=== PATIENT | female | born 1960 | race American Indian/Alaskan Native ===

== ENCOUNTER 2022-11-09 06:16 | Inpatient (IN) | payer MEDICARE, OTHER ==
[2022-11-03 11:29] LABS: BASOPHILS % (AUTO) 0.6 % (0-1); EOSINOPHILS # (AUTO) 0.1 X10'3 (0-0.9); EOSINOPHILS % (AUTO) 1.3 % (0-6); LYMPHOCYTES # (AUTO) 3.1 X10'3 (1.1-4.8); LYMPHOCYTES % (AUTO) 41.8 % (21-51); MEAN CORPUSCULAR HEMOGLOBIN 28.9 PG (27.0-31.0); MEAN CORPUSCULAR HGB CONC 33.3 g/dL (33.0-36.5); MEAN CORPUSCULAR VOLUME 86.7 FL (78-98); MEAN PLATELET VOLUME 8.8 FL (7.4-10.4); MONOCYTES # (AUTO) 0.6 X10'3 (0-0.9); MONOCYTES % (AUTO) 7.8 % (2-12); NEUTROPHILS # (AUTO) 3.6 X10'3 (1.8-7.7); NEUTROPHILS % (AUTO) 48.5 % (42-75); PRE OP HEMATOCRIT 37.4 % (35.0-45.0); PRE OP HEMOGLOBIN 12.4 g/dL (12.0-16.0); PRE OP PLATELET COUNT 233 X10'3 (140-440); RED BLOOD COUNT 4.31 X10'6 (4.20-5.60); RED CELL DISTRIBUTION WIDTH 14.3 % (11.5-14.5)
[2022-11-03 11:44] LABS: ALBUMIN 3.6 G/DL (3.4-5.0); ALBUMIN/GLOBULIN RATIO 1.1 (1.1-1.5); ALKALINE PHOSPHATASE 55 IU/L (46-116); BLOOD UREA NITROGEN 25 MG/DL (7-18); BUN/CREATININE RATIO 28.7 (10.0-20.0); CALCIUM 9.2 MG/DL (8.5-10.1); CHLORIDE 105 MMOL/L (99-107); CREATININE 0.87 MG/DL (0.40-0.90); PRE OP ALT 25 U/L (30-65); PRE OP ANION GAP 8 (8-16); PRE OP AST 16 U/L (10-37); PRE OP BILIRUB, TOTAL 0.3 MG/DL (0.0-1.0); PRE OP GLUCOSE 87 MG/DL (70-104); PRE OP POTASSIUM 3.8 MMOL/L (3.4-5.1); PRE OP SODIUM 141 MMOL/L (135-145); TOTAL CARBON DIOXIDE 28.4 MMOL/L (24-32); TOTAL PROTEIN 6.9 G/DL (6.4-8.2); eGFR 66 ML/MIN
[2022-11-09] VITALS (29 sets, daily range): BP systolic 114–184; BP diastolic 50–99
[~2022-11-09] VITALS: Ht 157.5 cm; Wt 116.5 kg
[~2022-11-09 06:16] MED LIST: CYCL-1 PO; HYDR25TA4 PO; LOSA100T58 PO; MELO-102 PO; PREVCR VG; TRAM50TA2 PO; cefazolin 2gm/D5W 100mL 100 ML IV ONE; famotidine 20mg tablet PO ONE; ringers solution, lacted 1,000 ML IV SCH; tranexamic acid 650mg tablet PO ONE; vancomycin 1,500 MG in NS 300ml IV soln IV ONE
[2022-11-09] MEDS ORDERED: tranexamic acid 650mg tablet PO ONE (06:25)
--- NOTE | 2022-11-09 06:35 | NUR ---
CSM: PULSES PRESENT AND MARKED. PATIENT STATES "IGNORANCE IS BLISS. I DID NOT WATCH THE VIDEO" MUPIROCIN CREAM WAS USED. EDUCATED PATIENT ON THE USE OF THE INCENTIVE SPIROMETER AND ITS IMPORTANCE
[2022-11-09] MEDS ORDERED: tranexamic acid 100mg/ml inj. ONE (06:57)
[2022-11-09] MEDS ORDERED: ketorolac trometh. 30mg/ml inj. ONE (06:57)
[2022-11-09] MEDS ORDERED: ROPIVAcaine 0.5% (5mg/ml) 30ml vial ONE ×2 (06:57→09:36)
[2022-11-09] MEDS ORDERED: fentaNYL/PF 50MCG/1 ML 2ML syringe ONE ×2 (07:43→09:30)
[2022-11-09] MEDS ORDERED: midazolam 1 mg/ML 2ml injection ONE (07:43)
[2022-11-09] MEDS ORDERED: neostigmine methylsulfate 1 MG/ML 10ml vial ONE (08:00)
[2022-11-09] MEDS ORDERED: sevoflurane 250ml liquid IH ONE (08:00)
[2022-11-09] MEDS ORDERED: glycopyrrolate 0.2mg/ml inj ONE (08:00)
[2022-11-09] MEDS ORDERED: ringers solution, lacted 1,000 ML IV SCH (08:35)
[2022-11-09] MEDS ORDERED: meperidine/PF 25mg/ml syringe IV PRN ×3 (08:35)
[2022-11-09] MEDS ORDERED: proCHLORperazine 10 MG/2 ml inj IV PRN (08:35)
[2022-11-09] MEDS ORDERED: morphine 2 MG/ML inj. syringe IV PRN (08:35)
[2022-11-09] MEDS ORDERED: ondansetron/PF 4mg/2ml inj IV PRN ×2 (08:35→10:35)
[2022-11-09] MEDS ORDERED: morphine 4 MG/ML inj SYRINge IV PRN (08:35)
[2022-11-09] MEDS ORDERED: ROPIVAcaine 0.2% (10 MG/5 ML) BOLUS INJECTION INTERSCALE PRN (09:15)
[2022-11-09] MEDS ORDERED: ROPIVAcaine 0.2%/PF PUMP/bolus 545 ML INTERSCALE SCH (09:15)
[2022-11-09] MEDS ORDERED: ROPIVAcaine 0.5% (5mg/ml) 30ml vial IJ ONE (09:27)
[2022-11-09] MEDS ORDERED: ketorolac trometh. 30mg/ml inj. IM ONE (09:29)
[2022-11-09] MEDS ORDERED: LIDOcaine 1%/PF 5ML 10 MG/ML VIAL ONE (09:36)
[2022-11-09] MEDS ORDERED: rocuronium 10mg/ml inj IV ONE (09:36)
[2022-11-09] MEDS ORDERED: acetaminophen 1,000mg/100ml IV 100 ML IV ONE (09:36)
[2022-11-09] MEDS ORDERED: ePHEDrine 50MG/ML INJ. ONE (09:36)
[2022-11-09] MEDS ORDERED: dexamethasone sod phosphate 4mg/ml inj. ONE (09:36)
[2022-11-09] MEDS ORDERED: ondansetron/PF 4mg/2ml inj ONE (09:36)
[2022-11-09] MEDS ORDERED: propofol inj 20 ML IV ONE (09:36)
--- NOTE | 2022-11-09 10:11 | NUR ---
Received from OR via HOSPITAL BED, accompanied by Anesthesiologist DR PATTEN and report given by Anesthesiologist. PT IS GROGGY BUT ANSWERS QUESTIONS APPROPRIATELY AND FOLLOWS COMMANDS. PT PLACED ON BEDSIDE MONITOR, VSS. PT IS IN SR WITH RATE IN 80'S. PT IS RECEIVING 8L 02 TO MASK AND TOLERATING WELL WITH O2 SAT >95%. WILL TITRATE DOWN PT TOLERATES. PT HAS 20G PIV TO RT HAND WITH LR INFUSING ORDERED. PT HAS DRSG TO LEFT SHOULDER THAT IS CDI. SHOULDER WRAP IN PLACE WITH ICEPACK. PT HAS SLING TO LEFT ARM. PT DENIES PAIN AT THIS TIME. AWAITING PHARMACY TO DELIVER ON-Q. WILL START SOON AVAILABLE. WILL CONTINUE TO ASSESS
[2022-11-09] MEDS ORDERED: magnesium hydroxide 30ml (MOM) UD suspension PO PRN (10:35)
[2022-11-09] MEDS ORDERED: bisacodyl 10mg suppository rectal RC PRN (10:35)
[2022-11-09] MEDS ORDERED: diphenhydrAMINE 25mg capsule PO PRN ×2 (10:35)
[2022-11-09] MEDS ORDERED: HYDROcodone/acetaminophen 10/325mg tab PO PRN ×2 (10:35)
[2022-11-09] MEDS ORDERED: naloxone 0.4 mg/ml inj IV PRN (10:35)
[2022-11-09] MEDS ORDERED: cyclobenzaprine 10mg tablet PO PRN (10:35)
[2022-11-09] MEDS ORDERED: oxyCODONE IR 5mg (immed. release) tablet PO PRN ×2 (10:35)
[2022-11-09] MEDS ORDERED: acetaminophen 325mg tablet PO PRN (10:35)
[2022-11-09] MEDS ORDERED: HYDROmorphone 1 mg/ml syringe IV PRN (10:35)
[2022-11-09] MEDS ORDERED: HYDROmorphone inj. 0.5 MG/0.5 ML DISP.SYRIN IV PRN (10:35)
[2022-11-09] MEDS ORDERED: traMADol 50MG tablet PO PRN (10:35)
--- NOTE | 2022-11-09 13:12 | NUR ---
PATIENT HAS MET ALL CRITERIA FOR TRANSFER TO THE ORTHO FLOOR. REPORT CALLED TO ABIGAIL BORREGO. DRESSINGS INTACT. BED LOW, CALL LIGHT PRESENT AND 2 RAILS UP. RN PRESENT TO ACCEPT CARE OF PATIENT AND REPORT HAS BEEN CALLED. ALL QUESTIONS ANSWERED TO ACCEPTING RN.
[2022-11-09] MEDS: acetaminophen 325mg tablet PO SCH ×2 (15:46→20:36)
[2022-11-09] MEDS: potassium cl 20mEq in 1/2 NS 1,000 ML IV SCH ×2 (15:47→23:31)
[2022-11-09] MEDS: ceFAZolin/D5W- 1GM premix 50 ML IV SCH ×2 (16:05→23:30)
--- NOTE | 2022-11-09 18:00 | NUR ---
I have reviewed and agree with interventions, assessments, and documentation by Ernesto Cotto LVN.
--- NOTE | 2022-11-09 18:56 | NUR ---
Problems reprioritized. Patient report given, questions answered & plan of care reviewed with MOY Gamboa.
[2022-11-09] MEDS ORDERED: vancomycin/NS 1 GM ADD-VANTAGE 250 ML IV SCH (20:00)
--- NOTE | 2022-11-09 20:30 | NUR ---
Patient in room ORTHO 4010. I have received report from MOY Perez and had the opportunity to ask questions and assume patient care.
--- NOTE | 2022-11-09 20:40 | NUR ---
dropped senna tablet on [facility], pulled another senna from [facility]. Total given, 17.2 mg
[2022-11-09] MEDS ORDERED: sennosides 8.6mg tablet PO SCH (21:00)
[2022-11-10 02:00] VITALS: BP 145/64
[2022-11-10] MEDS: acetaminophen 325mg tablet PO SCH ×2 (02:24→07:33)
[2022-11-10] MEDS: potassium cl 20mEq in 1/2 NS 1,000 ML IV SCH (03:30)
[2022-11-10 06:00] VITALS: BP 129/72
--- NOTE | 2022-11-10 06:15 | NUR ---
Patient in room ORTHO 4010. I have received report from Milka PIPER and had the opportunity to ask questions and assume patient care.
--- NOTE | 2022-11-10 06:34 | NUR ---
Problems reprioritized. Patient report given, questions answered & plan of care reviewed with VERONIQUE Helms.
--- NOTE | 2022-11-10 06:46 | NUR ---
I have reviewed and agree with all interventions, assessments performed and documented by VERONIQUE PACKER.
[2022-11-10 06:51] LABS: ANION GAP 12 (8-16); BASOPHILS % (AUTO) 0.2 % (0-1); CHLORIDE 104 MMOL/L (99-107); EOSINOPHILS % (AUTO) 0.1 % (0-6); HEMATOCRIT 33.3 % (35.0-45.0); HEMOGLOBIN 10.8 g/dl (12.0-16.0); LYMPHOCYTES # (AUTO) 3.2 X10'3 (1.1-4.8); LYMPHOCYTES % (AUTO) 22.6 % (21-51); MEAN CORPUSCULAR HEMOGLOBIN 28.8 PG (27.0-31.0); MEAN CORPUSCULAR HGB CONC 32.4 g/dL (33.0-36.5); MEAN CORPUSCULAR VOLUME 88.9 FL (78-98); MEAN PLATELET VOLUME 9.2 FL (7.4-10.4); MONOCYTES # (AUTO) 1.7 X10'3 (0-0.9); MONOCYTES % (AUTO) 12.2 % (2-12); NEUTROPHILS % (AUTO) 64.9 % (42-75); PLATELET COUNT 236 X10'3 (140-440); POTASSIUM 3.7 MMOL/L (3.5-5.1); RED BLOOD COUNT 3.74 X10'6 (4.20-5.60); RED CELL DISTRIBUTION WIDTH 14.5 % (11.5-14.5); SODIUM 138 MMOL/L (135-145); TOTAL CARBON DIOXIDE 22.1 MMOL/L (24-32); WHITE BLOOD COUNT 13.9 X10'3 (4.5-11.0)
[2022-11-10] MEDS ORDERED: losartan 50mg tablet PO SCH (08:00)
[2022-11-10] MEDS ORDERED: HYDROchlorothiazide 25mg tablet PO SCH (08:00)
[2022-11-10] MEDS ORDERED: MELOXICAM 7.5 MG TABLET PO SCH (08:00)
[2022-11-10 10:00] VITALS: BP 116/54
--- NOTE | 2022-11-10 11:10 | NUR ---
Joint surgery consult: Pt s/p L shoulder surgery this admit per EMR. Pt seen by ARVIND for written/verbal high protein diet ed w/ RD contact information provided. RD encouraged pt to contact dietitian's office if further nutrition questions/concerns. Pt reports takes steele seal/steele root typically when has a cut or wound requests RD input on this herbal supplement. RD researched this and found it is a mild laxative, hypertensive, vasoconstrictor, and in high doses can lead to trouble breathing, spasms, and central paralysis. ARVIND notified pt RN of findings. Addendum: 11/10/22 at [address] Amended: Links added.
--- NOTE | 2022-11-10 12:00 | NUR ---
I have reviewed and agree with interventions, assessments, and documentation by Rachana Chavez LVN.
--- NOTE | 2022-11-10 12:45 | NUR ---
Patient was discharged home today. IV removed by RN. Patient was helped getting dressed. Patient alert and appropriate. Patient was wheeled downstairs with all belongings. patient was helped into friends private vehicle.
[2022-11-10] MEDS ORDERED: celeCOXIB 100mg capsule PO SCH (20:00)
[2022-11-11] MEDS ORDERED: acetaminophen 325mg tablet PO PRN (10:35)
[2022-11-16] MEDS ORDERED: estrogens, conjug. vaginal cream 45gm tube VG SCH (10:00)
== END 2022-11-10 12:55 | disposition home or self-care (01) | DRG 483 ==
LOC: UNDOADMIN 06:16 → PAS IN 06:16 → ORTHO 4S 13:50
PROVIDERS: ADMIT Orthopaedic Surgery; ATTEND Orthopaedic Surgery
PROC: 0LS40ZZ Reposition Left Upper Arm Tendon, Open Approach (ICD-10-PCS; 2022-11-09)
PROC: 3E0T3BZ Introduction of Anesthetic Agent into Peripheral Nerves and Plexi, Percutaneous Approach (ICD-10-PCS; 2022-11-09)
PROC: 3E0T33Z Introduction of Anti-inflammatory into Peripheral Nerves and Plexi, Percutaneous Approach (ICD-10-PCS; 2022-11-09)
PROC: 5A09357 Assistance with Respiratory Ventilation, Less than 24 Consecutive Hours, Continuous Positive Airway Pressure (ICD-10-PCS; 2022-11-09)
PROC: 0RRK0JZ Replacement of Left Shoulder Joint with Synthetic Substitute, Open Approach (ICD-10-PCS; principal; 2022-11-09 08:00)
PROC: 5A09357 Assistance with Respiratory Ventilation, Less than 24 Consecutive Hours, Continuous Positive Airway Pressure (ICD-10-PCS; 2022-11-10)
DX: M19.012 Primary osteoarthritis, left shoulder (principal); Z68.42 Body mass index [BMI] 45.0-49.9, adult; E66.01 Morbid (severe) obesity due to excess calories; F41.9 Anxiety disorder, unspecified; Z96.611 Presence of right artificial shoulder joint; M79.7 Fibromyalgia; G47.33 Obstructive sleep apnea (adult) (pediatric); M75.22 Bicipital tendinitis, left shoulder; G89.29 Other chronic pain; M65.812 Other synovitis and tenosynovitis, left shoulder; Z79.899 Other long term (current) drug therapy; Z88.2 Allergy status to sulfonamides
CPT/HCPCS: 36415; 80051; 80053; 82948; 85025; 87081; 97110; 97161; 97530; A4565; A4615; A4618; A7000; C1713; C1776; G0378; J0131; J0690; J1100; J1885; J2250; J2405; J2704; J2710; J2795; J3010; J3370; J3480; J3490; J7120

== ENCOUNTER 2025-04-24 19:53 | Emergency (ER) | payer MEDICARE, OTHER ==
[~2025-04-24 19:53] MED LIST changes: -cefazolin 2gm/D5W 100mL 100 ML IV ONE; -famotidine 20mg tablet PO ONE; -ringers solution, lacted 1,000 ML IV SCH; -tranexamic acid 650mg tablet PO ONE; -vancomycin 1,500 MG in NS 300ml IV soln IV ONE
--- NOTE | 2025-04-24 20:01 | ELECTROCARDIOGRAPH REPORT ---
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 Pepe Rollins Measurements Intervals [place] Rate: 102 P: 41 IN: 137 QRS: 61 QRSD: 104 T: 26 QT: 334 QTc: 436 Interpretive Statements Sinus tachycardia Low voltage, precordial leads RSR' in V1 or V2, right VCD or RVH Electronically Signed On 04-24-2025 21:29:[address] Pepe Rollins Please click the below link to view image of tracing.
[2025-04-24 20:24] VITALS: TEMP 98.8
[2025-04-24 20:27] LABS: MEAN PLATELET VOLUME 8.8 FL (7.4-10.4); RED CELL DISTRIBUTION WIDTH 15.1 % (11.5-14.5)
--- NOTE | 2025-04-24 20:29 | RADIOLOGY REPORT ---
CHEST RADIOGRAPH Indication: CP Technique: Single frontal view of the chest was obtained COMPARISON: CHEST,TWO VIEWS on DOS: 03/26/22 FINDINGS: Lines and Tubes: None Lungs: Increased interstital prominence. This may represent pulmonary vascular congestion and/or viral pneumonia. Pleura: No effusion.No pneumothorax. Cardiomediastinal contours: Borderline cardiomegaly. Bones: Unremarkable IMPRESSION: Increased interstital prominence. This may represent pulmonary vascular congestion and/or viral pneumonia.
[2025-04-24 20:43] LABS: CREATININE 0.92 MG/DL (0.40-0.90); PRO BRAIN NATRIURETIC PEPTIDE 130 PG/ML (0-125); TOTAL CARBON DIOXIDE 30.4 MMOL/L (24-32); eGFR 61 ML/MIN
--- NOTE | 2025-04-24 22:00 | Physician Documentation ---
History of Present Illness ~ Chief Complaint: Shortness of Breath Stated Complaint: SOB Time Seen by MD: 22:45 Primary Medical Doctor: DR HAYDEE BROWNLEE HPI 65 year old female patient presents to the ED with complaints of left sided back pain. She states that it began 2.5 days ago and is now radiating to her shoulder. She states that the pain "takes her breath away" with any movement. Patient has history of Lupus but states that "this pain is different". She states that she "feels fine" at rest. Patient denies any other associated symptoms. Patient denies any other alleviating or exacerbating factors at this time. Medication Reconciliation Allergies: Coded Allergies: Sulfa (Sulfonamide Antibiotics) (Unverified Allergy, Unknown, RASH, 04/24/25) RASH Scheduled Estrogens,Conjugated (PREMARIN Vaginal Cream), 1 GM VG Q2W, (Reported) Hydrochlorothiazide (Hydrochlorothiazide), 1 TAB PO DAILY, (Reported) Losartan Potassium (Losartan Potassium), 1 TAB PO DAILY, (Reported) Meloxicam (Meloxicam), 1 TAB PO DAILY, (Reported) Scheduled PRN Cyclobenzaprine* (Cyclobenzaprine*), 1 TAB PO DAILY PRN for pain, (Reported) Hydrocodone Bit/Acetaminophen 5/325 MG (Cascade 5/325 MG), 1-2 TAB PO Q4-6 hours PRN for pain ONDANSETRON ODT 4mg tablet (Ondansetron Odt), 1 TAB PO Q6H PRN PRN for nausea/vomiting Tramadol Hcl (Tramadol Hcl), 1 TAB PO BID PRN for pain, (Reported) Past Medical History Past Medical History: Hypertension, Chronic Pain Past Surgical History: , hysterectomy, other Other Past Surgical History: BACK Other Past Family History: NONE Alcohol Use: None Drug Use: none Lives with: Alone Lives In: Home Review of Systems ROS As stated above in the HPI, otherwise all systems are reviewed and negative. Physical Exam Vital Signs: RN Vital Signs have been reviewed: Yes, Temperature: 98.8, Source: Oral, Heart Rate: 104, Respiratory Rate: 16, BP: 140/71, Pulse Oximetry: 98 Oxygen Flow Rate: 0 Pulse Oximetry Reflects: adequate oxygenation Physical Exam General: Patient is awake, alert, oriented x4 in no acute distress and well appearing.~ Head: Normocephalic and atraumatic. Eyes: Conjunctival normal. EOMI. PERRL. ENT: Mucous membranes moist. Neck: Supple, trachea is midline. Chest: Clear to auscultation bilaterally without rales, rhonchi, or wheezes. T here is no accessory muscle use or retractions. Cardiac: RRR without murmurs, gallops, or rubs. Abd: Soft, nondistended, nontender, with normoactive bowel sounds. No guarding, rebound, or rigidity. Extremities: Normal strength. Normal range of motion. No deformities or edema. Back: Tenderness to palpation to the left paraspinal musculature of the thoracic region. Skin: Warm and dry with no significant rash appreciated. Neuro: Cranial nerves II-XII grossly intact. No focal neuro deficits. Patient ambulating without difficulty. Progress Results/Orders Results/Orders Orders - OMAR DRUMMOND MD Chest,Single View (04/24/25 20:18) Monitor (04/24/25 19:57) Saline Lock (04/24/25 19:57) Oxygen (04/24/25 19:57) Electrocardiogram (04/24/25 19:57) Completed Orders - OMAR DRUMMOND MD Chest,Single View (04/24/25 20:18) Cbc/Diff (04/24/25 19:57) BMP (04/24/25 19:57) PBNP (04/24/25 19:57) Electrocardiogram (04/24/25 19:57) Hs Troponin I W Calculations (04/24/25 19:57) Hs Troponin I W Calculations (04/24/25 22:57) Ketorolac Trometh 15mg/Ml Vial (Toradol (04/24/25 23:05) Acetaminophen 325mg Tablet (Tylenol Tabl (04/24/25 23:05) Orphenadrine Citrate Inj. (Norflex Inj.) (04/24/25 23:05) Ondansetron Disint. Tablet (Zofran Odt T (04/24/25 23:05) Hydrocodone/Apap 5/325mg Tab (Cascade 5/32 (04/24/25 23:05) Medications Received in ER Medications (Trade) Dose Ordered Sig/Malcolm Route PRN Reason Start Time Stop Time Status Last Admin Dose Admin (Toradol injection) 30 mg ONCE ONCE IM 04/24/25 23:05 04/24/25 23:18 DC 04/24/25 23:25 30 MG (Tylenol tablet) 325 mg ONCE ONCE PO 04/24/25 23:05 04/24/25 23:07 DC 04/24/25 23:27 325 MG (Norflex inj.) 30 mg ONCE ONCE IM 04/24/25 23:05 04/24/25 23:18 DC 04/24/25 23:28 30 MG (Zofran ODT tablet) 4 mg ONCE ONCE PO 04/24/25 23:05 04/24/25 23:07 DC 04/24/25 23:28 4 MG (Cascade 5/325mg tablet) 1 tab ONCE ONCE PO 04/24/25 23:05 04/24/25 23:18 DC 04/24/25 23:27 1 TAB Vital Signs 04/24/25 04/24/25 04/24/25 04/24/25 20:24 22:31 23:21 23:25 Temp 98.8 Pulse 104 96 81 Resp 16 25 20 18 B/P (MAP) 140/71 137/78 (97) 133/78 (96) Pulse Ox 98 96 95 O2 Flow Rate 0 04/24/25 23:27 Resp 18 Laboratory Tests Test 04/24/25 20:11 04/24/25 22:05 04/24/25 22:47 White Blood Count 12.0 H Red Blood Count 4.21 Hemoglobin 11.4 L Hematocrit 35.4 Mean Corpuscular Volume 83.9 Mean Corpuscular Hemoglobin 27.2 Mean Corpuscular Hemoglobin Concent 32.4 L Red Cell Distribution Width 15.1 H Platelet Count 287 Mean Platelet Volume 8.8 Neutrophils (%) (Auto) 66.4 Lymphocytes (%) (Auto) 20.3 L Monocytes (%) (Auto) 12.8 H Eosinophils (%) (Auto) 0.2 Basophils (%) (Auto) 0.3 Neutrophils # (Auto) 8.0 H Lymphocytes # (Auto) 2.4 Monocytes # (Auto) 1.5 H Eosinophils # (Auto) 0.0 Basophils # (Auto) 0.0 CBC Comment Sodium Level 141 Potassium Level 3.7 Chloride Level 105 Carbon Dioxide Level 30.4 Anion Gap 6 L Blood Urea Nitrogen 15 Creatinine 0.92 H Estimated GFR/1.73 m2 61 BUN/Creatinine Ratio 16.3 Glucose Level 170 H Calcium Level 8.8 Troponin I High Sensitivity 6 6 Pro-B-Type Natriuretic Peptide 130 H Albumin 3.1 L Chemistry Comments Troponin I High Sensitivity 2 Hour 5 Troponin I High Sens Percent Delta 0 Troponin I Hi Sens Absolute Change 0 EKG/XRAY/CT/US/VASC/MRI EKG : Intepreting Monitor?: No Additional Comment 1958: Sinus tachcyardia rate of 102, normal axis, no ST changes. EKG interpreted by Dr. Drummond. Chest X-Ray : Interpreted By: radiologist Views: 1 VIEW Additional Comments CHEST RADIOGRAPH Indication: CP Technique: Single frontal view of the chest was obtained COMPARISON: CHEST,TWO VIEWS on DOS: 03/26/22 FINDINGS: Lines and Tubes: None Lungs: Increased interstital prominence. This may represent pulmonary vascular congestion and/or viral pneumonia. Pleura: No effusion.No pneumothorax. Cardiomediastinal contours: Borderline cardiomegaly. Bones: Unremarkable IMPRESSION: Increased interstital prominence. This may represent pulmonary vascular congestion and/or viral pneumonia. Electronically Signed by:SHIVAM ASHLEY MD Date & Time: 04/24/252025 Dictated by: SHIVAM ASHLEY MD Dictation date and time: 04/24/252016 Primary Care Provider: NO PRIMARY CARE PROVIDER cc: OMAR DRUMMOND MD ~ Medical Decision Making Additional information obtaine: old records Findings Patient presents to the emergency room with chief complaint of back pain. Differentials include but are not limited to aortic pathology, musculoskeletal pain, pneumothorax, ACS. Physical exam is reassuring for tenderness to palpation and I believe she is suffering from lumbago and we will treat her accordingly. I do not feel patient requires CT scan. Heart Score: 0 Differential Dx:Considerations: Include: anxiety, asthma, bronchitis, cardiogenic shock, CHF, COPD, dysrhythmia, hypertension, accelerated, h ypertension, essential, hypertension, malignant, hyperventilation, hyponatremia, myocardial infarction, panic attack, pneumonia, pneumonitis, pneumothorax, PSVT, pulmonary embolism, respiratory distress, respiratory failure, sinusitis, upper resp. infection, other Departure Disposition: 01 HOME / SELF CARE / HOMELESS Impression: Primary Impression: Back pain Condition: Stable Discharge Instructions: Sudden Back Pain in Adults: What It Means Referrals: NO PRIMARY CARE PROVIDER (PCP) Prescriptions ONDANSETRON ODT 4mg tablet (ONDANSETRON ODT) 4 Mg Tab.rapdis 1 TAB PO Q6H PRN PRN for nausea/vomiting for 4 Days, #16 TAB 0 Refills Prov: OMAR DRUMMOND MD 04/24/25 Hydrocodone Bit/Acetaminophen 5/325 MG (Cascade 5/325 MG) 5 Mg/325 Mg Tablet 1-2 TAB PO Q4-6 hours PRN for pain, #7 TAB Prov: OMAR DRUMMOND MD 04/24/25 Signature Scribe Signature: No scribe Attestation: The note accurately reflects work and decisions made by me.Omar Drummond MD 04/25/25 04:06 MARGOT MAGAÑA Apr 24, 2025 22:00 JENNIFER GARCIA Apr 24, 2025 23:14 OMAR DRUMMOND MD Apr 25, 2025 04:06
[2025-04-24] MEDS ORDERED: ONDA-243 PO (23:07)
[2025-04-24] MEDS ORDERED: HYDR-3965 PO (23:07)
[2025-04-24 23:21] VITALS: BP 133/78; PULSE 81; O2SAT 95
[2025-04-24] MEDS: ketorolac trometh 15mg/ml vial 15 MG/ML ML IM ONE (23:25)
[2025-04-24 23:27] VITALS: RESP 18
[2025-04-24] MEDS: HYDROcodone/acetaminophen 5mg/325mg tablet PO ONE (23:27)
[2025-04-24] MEDS: ondansetron 4mg rapidly disintigrating tab PO ONE (23:28)
[2025-04-24] MEDS: orphenadrine citrate 60mg/2ml inj. IM ONE (23:28)
== END 2025-04-24 23:30 | disposition home or self-care (01) ==
LOC: ER 19:53
DX: M54.9 Dorsalgia, unspecified (principal); G89.29 Other chronic pain; I10 Essential (primary) hypertension; Z88.2 Allergy status to sulfonamides; Z90.710 Acquired absence of both cervix and uterus; Z79.899 Other long term (current) drug therapy; Z98.890 Other specified postprocedural states
CPT/HCPCS: 36415; 71045; 80048; 83880; 84484; 85025; 93005; 96372; 99285; J1885; J2360